=== PATIENT | female | born 1940 | race African-American/Black ===

== ENCOUNTER 2016-12-07 02:23 | Emergency (ER) | payer MEDICARE, MEDICAID ==
[~2016-12-07] VITALS: Ht 157.5 cm; Wt 64.0 kg
[~2016-12-07 02:23] MED LIST: AZOR PO; BIMA2.5D4 EACHEYE; BRIMONIDINE EACHEYE
[2016-12-07] MEDS ORDERED: ONDANSETRON HCL 4MG/2ML VIAL IV STA (02:36)
[2016-12-07] MEDS ORDERED: SODIUM CHLORIDE 0.9% 500 ML IV ONE (02:36)
[2016-12-07 02:40] VITALS: BP 131/60
[2016-12-07 03:17] LABS: HEMATOCRIT. 31.9 % (36.0-48.0); HEMOGLOBIN. 10.3 g/dL (12.0-16.0); MEAN CORPUSCULAR HEMOGLOBIN 27.2 pg (28.0-32.0); MEAN CORPUSCULAR VOLUME 84.1 fL (81.0-99.0); MEAN PLATELET VOLUME 7.7 fl (7.4-10.4); PLATELET 213 x1000/uL (130-400); RED BLOOD CELL COUNT 3.79 mill/uL (4.2-5.4); RED CELL DISTRIBUTION WIDTH 14.4 % (11.6-14.6)
[2016-12-07 03:18] LABS: INR 1.1; PROTHROMBIN TIME 11.2 sec
[2016-12-07 03:30] LABS: CARBON DIOXIDE 27 mEq/L (21-32); CHLORIDE 105 mEq/L (98-107); TROPONIN I < 0.02 ng/mL (0.00-0.04)
[2016-12-07 06:52] LABS: PLATELET ESTIMATE NORMAL
== END 2016-12-07 04:42 | disposition home or self-care (01) ==
LOC: ER 02:23 → CANBEDREQ 07:16
DX: R11.2 Nausea with vomiting, unspecified (principal); I10 Essential (primary) hypertension; K57.92 Diverticulitis of intestine, part unspecified, without perforation or abscess without bleeding; F03.90 Unspecified dementia, unspecified severity, without behavioral disturbance, psychotic disturbance, mood disturbance, and anxiety; H40.9 Unspecified glaucoma
CPT/HCPCS: 36415; 71010; 74176; 80053; 83690; 83880; 84484; 85025; 85610; 93005; 96361; 96374; 99285; J2405; J7040

== ENCOUNTER 2019-01-23 08:31 | Inpatient (IN) | payer MEDICARE, MEDICAID ==
[~2019-01-23] VITALS: Ht 165.1 cm; Wt 72.1 kg
[~2019-01-23 08:31] MED LIST changes: +CYCL30DR EACHEYE; +DORZ10DR12 EACHEYE; +MEMA5TAB7 MT
[2019-01-23 10:27] LABS: BASOPHILS % 0.6 % (0.0-2.0); EOSINOPHILS % 0.9 % (0.0-5.0); HEMATOCRIT. 39.9 % (36.0-48.0); HEMOGLOBIN. 12.9 g/dL (12.0-16.0); MEAN CORPUSCULAR HEMOGLOBIN 27.8 pg (28.0-32.0); MEAN CORPUSCULAR VOLUME 85.7 fL (81.0-99.0); MEAN PLATELET VOLUME 7.9 fl (7.4-10.4); NEUTROPHILS % 65.5 % (40.0-76.0); PLATELET 222 x1000/uL (130-400); RED BLOOD CELL COUNT 4.66 mill/uL (4.2-5.4); RED CELL DISTRIBUTION WIDTH 14.3 % (11.6-14.6)
[2019-01-23 10:41] LABS: CLARITY URINE CLOUDY (CLEAR); COLOR URINE YELLOW (YELLOW); KETONES URINE TRACE (NEGATIVE); LEUKOCYTE ESTERASE URINE NEGATIVE (NEGATIVE); NITRITE URINE NEGATIVE (NEGATIVE); OCCULT BLOOD URINE NEGATIVE (NEGATIVE); PH URINE 5.5 (4.5-8.0); PROTEIN URINE 1+ (NEGATIVE); SPECIFIC GRAVITY URINE 1.024 (1.005-1.030); UROBILINOGEN URINE 0.2 E.U./dL (0.2-1.0)
[2019-01-23 11:24] LABS: CHLORIDE 106 mEq/L (98-107)
[2019-01-23 14:13] VITALS: BP 117/62
[2019-01-23 14:28] VITALS: BP 117/62
[2019-01-23 16:00] VITALS: BP 132/66
[2019-01-23 20:00] VITALS: BP 136/67
[2019-01-24] VITALS: BP_SYST 118; BP_DIAS 68; BP_DIAS 70
[2019-01-24 06:53] LABS: BASOPHILS % 0.4 % (0.0-2.0); EOSINOPHILS % 0.8 % (0.0-5.0); HEMATOCRIT. 35.1 % (36.0-48.0); HEMOGLOBIN. 11.4 g/dL (12.0-16.0); LYMPHOCYTES % 31.8 % (20.0-50.0); MEAN CORPUSCULAR HEMOGLOBIN 27.5 pg (28.0-32.0); MEAN CORPUSCULAR VOLUME 84.4 fL (81.0-99.0); MEAN PLATELET VOLUME 8.3 fl (7.4-10.4); MONOCYTES % 10.7 % (2.0-8.0); NEUTROPHILS % 56.3 % (40.0-76.0); PLATELET 218 x1000/uL (130-400); RED BLOOD CELL COUNT 4.16 mill/uL (4.2-5.4); RED CELL DISTRIBUTION WIDTH 14.4 % (11.6-14.6)
[2019-01-24 08:00] VITALS: BP 119/69
[2019-01-24 09:30] LABS: CHLORIDE 106 mEq/L (98-107)
[2019-01-24 09:55] LABS: TOTAL IRON BINDING CAPACITY 324 ug/dL (250-450)
[2019-01-24 12:00] VITALS: BP 118/60
[2019-01-24] MEDS: DEXT 5%/0.45% NACL 1000ML 1,000 ML IV SCH ×2 (14:25→23:50)
[2019-01-24] MEDS: BRIMONIDINE 0.2% OPHTH DROPS 5ML EACHEYE SCH (17:00)
[2019-01-24] MEDS ORDERED: MEDICATION NOT ON FORMULARY EA (Bimatoprost (Lumigan) 1 DROP) EACHEYE SCH (17:00)
[2019-01-24] MEDS ORDERED: BRIMONIDINE EACHEYE SCH (17:00)
[2019-01-24] MEDS: DORZOLAM/TIMOLOL 2.23/0.68% OPHTH DROPS 10ML EACHEYE SCH (18:54)
[2019-01-24] MEDS: LATANOPROST 0.005% OPHTH DROPS 2.5ML EACHEYE SCH (18:55)
[2019-01-24 20:00] VITALS: BP_SYST 123; BP_SYST 141; BP_SYST 88; BP_DIAS 49; BP_DIAS 68; BP_DIAS 69
[2019-01-24] MEDS: MEMANTINE HCL 5MG TABLET PO SCH (21:08)
[2019-01-25] VITALS: BP 118/70
[2019-01-25 04:00] VITALS: BP 119/60
[2019-01-25 08:00] VITALS: BP 125/71
[2019-01-25] MEDS ORDERED: IOHEXOL-350 100 ML BOTTLE ONE (09:05)
[2019-01-25 10:06] LABS: BASOPHILS % 0.8 % (0.0-2.0); EOSINOPHILS % 3.2 % (0.0-5.0); HEMATOCRIT. 38.2 % (36.0-48.0); HEMOGLOBIN. 12.4 g/dL (12.0-16.0); LYMPHOCYTES % 38.9 % (20.0-50.0); MEAN CORPUSCULAR HEMOGLOBIN 27.4 pg (28.0-32.0); MEAN CORPUSCULAR VOLUME 84.2 fL (81.0-99.0); MONOCYTES % 12.1 % (2.0-8.0); PLATELET 242 x1000/uL (130-400); RED BLOOD CELL COUNT 4.54 mill/uL (4.2-5.4); RED CELL DISTRIBUTION WIDTH 14.4 % (11.6-14.6)
[2019-01-25] MEDS: AMLODIPINE 5MG TABLET PO SCH (11:14)
[2019-01-25] MEDS: BRIMONIDINE 0.2% OPHTH DROPS 5ML EACHEYE SCH ×2 (11:15→16:53)
[2019-01-25] MEDS: DORZOLAM/TIMOLOL 2.23/0.68% OPHTH DROPS 10ML EACHEYE SCH ×2 (11:15→16:53)
[2019-01-25 12:00] VITALS: BP 127/59
[2019-01-25 12:11] LABS: *AMPHETAMINES SCREEN URINE NEGATIVE (NEGATIVE); *BARBITURATES SCREEN URINE NEGATIVE (NEGATIVE); *COCAINE SCREEN URINE NEGATIVE (NEGATIVE)
[2019-01-25 12:12] LABS: *BENZODIAZEPINES SCREEN URINE NEGATIVE (NEGATIVE); CANNABINOID URINE SCREEN NEGATIVE (NEGATIVE); METHADONE URINE SCREEN NEGATIVE (NEGATIVE); OPIATES URINE SCREEN NEGATIVE (NEGATIVE); PHENCYCLIDINE URINE SCREEN NEGATIVE (NEGATIVE)
[2019-01-25] MEDS: DEXT 5%/0.45% NACL 1000ML 1,000 ML IV SCH (14:31)
[2019-01-25 16:00] VITALS: BP_SYST 105; BP_SYST 142; BP_DIAS 57; BP_DIAS 62
[2019-01-25 17:51] LABS: CHLORIDE 106 mEq/L (98-107)
[2019-01-25 17:56] LABS: ETHANOL BLOOD < 10 mg/dL
[2019-01-25] MEDS: LORAZEPAM 2MG/ML CPJ IV PRN (19:31)
[2019-01-25 20:26] VITALS: BP 121/72
[2019-01-25] MEDS: Cyclosporine (Restasis) 1 DROP OP SCH (20:50)
[2019-01-25] MEDS: LATANOPROST 0.005% OPHTH DROPS 2.5ML EACHEYE SCH (20:50)
[2019-01-25] MEDS: MEMANTINE HCL 5MG TABLET PO SCH (20:53)
[2019-01-26] VITALS (8 sets, daily range): BP systolic 105–141; BP diastolic 58–81
[2019-01-26] MEDS: DEXT 5%/0.45% NACL 1000ML 1,000 ML IV SCH (02:52)
[2019-01-26 07:25] LABS: BASOPHILS % 0.5 % (0.0-2.0); EOSINOPHILS % 4.8 % (0.0-5.0); HEMATOCRIT. 34.3 % (36.0-48.0); HEMOGLOBIN. 11.2 g/dL (12.0-16.0); LYMPHOCYTES % 42.8 % (20.0-50.0); MEAN CORPUSCULAR HEMOGLOBIN 27.5 pg (28.0-32.0); MEAN PLATELET VOLUME 8.2 fl (7.4-10.4); MONOCYTES % 12.4 % (2.0-8.0); NEUTROPHILS % 39.5 % (40.0-76.0); PLATELET 205 x1000/uL (130-400); RED BLOOD CELL COUNT 4.08 mill/uL (4.2-5.4); RED CELL DISTRIBUTION WIDTH 14.3 % (11.6-14.6)
[2019-01-26 07:42] LABS: CHLORIDE 107 mEq/L (98-107)
[2019-01-26] MEDS: AMLODIPINE 5MG TABLET PO SCH (08:56)
[2019-01-26] MEDS: BRIMONIDINE 0.2% OPHTH DROPS 5ML EACHEYE SCH ×2 (08:56→17:00)
[2019-01-26] MEDS: DORZOLAM/TIMOLOL 2.23/0.68% OPHTH DROPS 10ML EACHEYE SCH ×2 (08:56→17:00)
[2019-01-26] MEDS: Cyclosporine (Restasis) 1 DROP OP SCH ×2 (08:57→21:00)
[2019-01-26] MEDS ORDERED: ACETAMINOPHEN 325MG TABLET PO PRN (11:45)
[2019-01-26] MEDS: LORAZEPAM 2MG/ML CPJ IV PRN ×2 (18:02→20:29)
[2019-01-26] MEDS: MEMANTINE HCL 5MG TABLET PO SCH (20:29)
[2019-01-26] MEDS: LATANOPROST 0.005% OPHTH DROPS 2.5ML EACHEYE SCH (21:00)
[2019-01-27] VITALS: BP 139/62
[2019-01-27 04:00] VITALS: BP 119/59
[2019-01-27 08:36] VITALS: BP 128/60
[2019-01-27] MEDS: BRIMONIDINE 0.2% OPHTH DROPS 5ML EACHEYE SCH (08:38)
[2019-01-27] MEDS: LORAZEPAM 2MG/ML CPJ IV PRN ×2 (08:38→14:33)
[2019-01-27] MEDS: AMLODIPINE 5MG TABLET PO SCH (08:38)
[2019-01-27] MEDS: DORZOLAM/TIMOLOL 2.23/0.68% OPHTH DROPS 10ML EACHEYE SCH (08:39)
[2019-01-27] MEDS: Cyclosporine (Restasis) 1 DROP OP SCH (08:39)
[2019-01-27 12:12] VITALS: BP 140/65
[2019-01-27 15:07] VITALS: BP 140/65
[2019-01-27 16:04] VITALS: BP 104/49
== END 2019-01-27 16:50 | disposition home or self-care (01) | DRG 74 ==
LOC: ER 08:31 → 6WST 11:25 → ENRESERV 12:47 → 6WST 13:45
PROVIDERS: ADMIT Internal Medicine; ATTEND Internal Medicine
PROC: 4A10X4Z Monitoring of Central Nervous Electrical Activity, External Approach (ICD-10-PCS; principal; 2019-01-26)
DX: G90.8 Other disorders of autonomic nervous system (principal); R26.9 Unspecified abnormalities of gait and mobility; I10 Essential (primary) hypertension; F03.90 Unspecified dementia, unspecified severity, without behavioral disturbance, psychotic disturbance, mood disturbance, and anxiety; M48.02 Spinal stenosis, cervical region; M48.061 Spinal stenosis, lumbar region without neurogenic claudication; M47.896 Other spondylosis, lumbar region; E83.42 Hypomagnesemia; E78.5 Hyperlipidemia, unspecified; M51.26 Other intervertebral disc displacement, lumbar region; Z79.899 Other long term (current) drug therapy
CPT/HCPCS: 36415; 70496; 70551; 71045; 72146; 72148; 80048; 80061; 80305; 80320; 81003; 83036; 83540; 83550; 83735; 83880; 84436; 84443; 84484; 84550; 92523; 92610; 93005; 93306; 93880; 93971; 97110; 97162; 97166; 97535; 99285; J2060; Q9967; G0480

== ENCOUNTER 2021-08-02 20:19 | Emergency (ER) | payer MEDICARE, MEDICAID ==
[~2021-08-02] VITALS: Ht 144.8 cm; Wt 64.0 kg
[2021-08-02] MEDS ORDERED: HYDROCODONE/ACETAMINOPHEN 5/325MG TABLET PO ONE (21:45)
[2021-08-03] MEDS ORDERED: CLINDAMYCIN 600MG PREMIX 50 ML IV SCH (04:00)
[2021-08-03] MEDS ORDERED: LORAZEPAM 1MG TABLET PO ONE (04:45)
[2021-08-03] MEDS ORDERED: ZIPRASIDONE MESYLATE 20MG/VIAL IM ONE (05:45)
[2021-08-03 06:39] LABS: HEMATOCRIT 33.9 % (36.0-48.0); HEMOGLOBIN 10.9 g/dL (12.0-16.0); MEAN CORPUSCULAR HEMOGLOBIN 27.6 pg (28.0-32.0); MEAN CORPUSCULAR VOLUME 85.4 fL (81.0-99.0); PLATELET 200 x1000/uL (130-400); RED BLOOD CELL COUNT 3.96 mill/uL (4.2-5.4); RED CELL DISTRIBUTION WIDTH 16.3 % (11.6-14.6)
[2021-08-03 06:43] LABS: CHLORIDE 127 mEq/L (98-107)
[2021-08-03] MEDS ORDERED: POTASSIUM CHLORIDE 20MEQ TABLET SR PO ONE (07:00)
[2021-08-03] MEDS ORDERED: POTASSIUM CHLORIDE INJ 40 MEQ in DEXT 5% WATER 250 ML IV ONE (07:00)
[2021-08-03] MEDS ORDERED: KCL 20MEQ/100ML PREMIX 100 ML IV SCH (08:00)
[2021-08-03 08:15] VITALS: BP 121/61
== END 2021-08-03 08:51 | disposition short-term general hospital (02) ==
LOC: ER 20:19
DX: S02.42XA Fracture of alveolus of maxilla, initial encounter for closed fracture (principal); W18.39XA Other fall on same level, initial encounter; Y93.89 Activity, other specified; Y92.89 Other specified places as the place of occurrence of the external cause; Y99.8 Other external cause status; F03.90 Unspecified dementia, unspecified severity, without behavioral disturbance, psychotic disturbance, mood disturbance, and anxiety; I10 Essential (primary) hypertension; H40.9 Unspecified glaucoma; Z79.899 Other long term (current) drug therapy; Z20.822 Contact with and (suspected) exposure to COVID-19
CPT/HCPCS: 36415; 70450; 70486; 80053; 85027; 87426; 96361; 96365; 96372; 99285; J3480; J3486; J3490; J7060